=== PATIENT | female | born 1995 | race Hispanic/Latino ===

== ENCOUNTER 2024-09-28 22:47 | Inpatient (IN) | payer MEDICAID, SELFPAY ==
[2024-09-28] MEDS ORDERED: hydrALAZINE 20 MG/ML VIAL SLOW IVP PRN (23:57)
[2024-09-29] MEDS ORDERED: Misoprostol 200 MCG TAB PR PRN (01:31)
[2024-09-29] MEDS ORDERED: hydrALAZINE 20 MG/ML VIAL SLOW IVP PRN ×2 (01:31→03:20)
[2024-09-29] MEDS ORDERED: Acetaminophen 500 MG TAB PO PRN (01:31)
[2024-09-29] MEDS ORDERED: Carboprost 250 MCG/ML AMP IM PRN (01:31)
[2024-09-29] MEDS ORDERED: Tranexamic Acid 1,000 MG/10 ML VIAL IVP PRN (01:31)
[2024-09-29] MEDS ORDERED: Bicitra 30 ML UDCUP PO PRN (01:31)
[2024-09-29] MEDS ORDERED: fentaNYL 50 mcg/mL 1 mL Vial SLOW IVP PRN ×3 (01:31→14:45)
[2024-09-29] MEDS ORDERED: Promethazine HCl 25 MG/ML VIAL IM PRN ×2 (01:31→02:41)
[2024-09-29] MEDS ORDERED: Diphenoxylate HCl/Atropine Tablet PO PRN (01:31)
[2024-09-29] MEDS ORDERED: Ondansetron PF 4 MG/2 ML Vial IVP PRN ×3 (01:31→02:41)
[2024-09-29] MEDS ORDERED: Docusate 100 MG CAP PO PRN (01:31)
[2024-09-29] MEDS ORDERED: Famotidine/PF 20 mg/2ml Vial SLOW IVP PRN (01:31)
[2024-09-29] MEDS ORDERED: Methylergonovine 0.2 MG/ML VIAL IM PRN (01:31)
[2024-09-29] MEDS ORDERED: Oxytocin 30 units/NS 500 ML 500 ML IV SCH (01:45)
[2024-09-29] MEDS ORDERED: CEFAZOLIN 2 GM in Sodium Chloride 0.9% 100 ML IVPB SCH (01:45)
[2024-09-29] MEDS ORDERED: Azithromycin 500 MG in Sodium Chloride 0.9% 250 ML 250 ML IVPB SCH (01:45)
[2024-09-29] MEDS ORDERED: Lactated Ringer's 1,000 ML IV SCH (01:45)
[2024-09-29 01:48] VITALS: BMI 33.4
[2024-09-29 01:49] LABS: Hematocrit 33.9 % (34.9-44.5); Hemoglobin 11.5 g/dL (12.0-15.5); Mean Corpuscular HGB CONC 33.9 g/dL (32.0-36.0); Mean Corpuscular Hemoglobin 28.2 pg (27.0-33.0); Mean Corpuscular Volume 83.1 fL (81.6-98.3); Mean Platelet Volume 12.1 fL (7.4-10.4); Platelet Count 238 10x3/uL (150-450); RBC Distribution Width 16.4 % (11.5-14.5); Red Blood Cell (RBC) Count 4.08 10x6/uL (3.90-5.03); White Blood Cell (WBC) Count 10.5 10x3/uL (3.5-10.5)
[2024-09-29 02:20] LABS: Syphilis Antibody Nonreactive (Nonreactive); Syphilis Antibody Index 0.05 S/CO (<1.00 Non-Reactive)
[2024-09-29 02:22] LABS: HBsAg Index 0.16 S/CO (0-0.99); Hep B Surf Ag - L&D Non-Reactive S/CO (NonReactive)
[2024-09-29] MEDS ORDERED: diphenhydrAMINE 50 MG/ML VIAL IVP PRN (02:41)
[2024-09-29] MEDS ORDERED: Naloxone HCl 0.4 mg/ml Vial IVP PRN ×2 (02:41)
[2024-09-29] MEDS ORDERED: Naloxone HCl 0.4 mg/ml Vial IV PRN (02:41)
[2024-09-29] MEDS ORDERED: Morphine 4 MG/ML VIAL SLOW IVP PRN (02:41)
[2024-09-29] MEDS ORDERED: Moisturizing Cream (Eucerin) 113 GM JAR TOP PRN (02:41)
[2024-09-29] MEDS ORDERED: Meperidine HCl/PF 25 MG (1 mL) VIAL SLOW IVP PRN (02:41)
[2024-09-29] MEDS ORDERED: Communication Order-Pharmacy FS SCH (02:45)
[2024-09-29] MEDS ORDERED: Ketorolac Tromethamine 30 MG (1 mL) VIAL IVP SCH (02:45)
[2024-09-29] MEDS ORDERED: Simethicone Chewable 80 MG TAB PO PRN (03:20)
[2024-09-29] MEDS ORDERED: diphenhydrAMINE 25 MG CAP PO PRN (03:20)
[2024-09-29] MEDS ORDERED: Bisacodyl 10 MG SUPP PR PRN (03:20)
[2024-09-29] MEDS ORDERED: Lanolin Ointment 7 GM TUBE TOP PRN (03:20)
[2024-09-29] MEDS ORDERED: Acetaminophen 325 MG TAB PO PRN (03:20)
[2024-09-29] MEDS ORDERED: Boostrix 0.5 ML (Tdap) VIAL (>/=7 yrs of age) IM ONE (03:20)
[2024-09-29] MEDS: Ketorolac Tromethamine 30 MG (1 mL) VIAL IVP PRN (05:56)
[2024-09-29] MEDS: fentaNYL 50 mcg/mL 1 mL Vial ONE (07:16)
[2024-09-29] MEDS: PHENYLEPHRINE-NS 100 MCG/ML 10 ML SYRINGE ONE (07:16)
[2024-09-29] MEDS: Oxytocin 10 UNITS/ML VIAL ONE (07:16)
[2024-09-29] MEDS: CEFAZOLIN 2 GM VIAL ONE (07:16)
[2024-09-29] MEDS: Promethazine HCl 25 MG/ML VIAL ONE (07:16)
[2024-09-29] MEDS: Lactated Ringer's 1,000 ML IV SCH (07:16)
[2024-09-29] MEDS: Ondansetron PF 4 MG/2 ML Vial ONE (07:16)
[2024-09-29] MEDS: Morphine PF 10 MG/10 ML VIAL ONE (07:16)
[2024-09-29] MEDS: Prenatal Vitamin 1 TAB PO SCH (09:25)
[2024-09-29] MEDS: Ferrous Sulfate 325 MG TAB PO SCH (09:39)
[2024-09-30 04:01] LABS: Hematocrit 32.3 % (34.9-44.5); Hemoglobin 10.6 g/dL (12.0-15.5); Mean Corpuscular HGB CONC 32.8 g/dL (32.0-36.0); Mean Corpuscular Hemoglobin 27.8 pg (27.0-33.0); Mean Corpuscular Volume 84.8 fL (81.6-98.3); Mean Platelet Volume 11.3 fL (7.4-10.4); Platelet Count 206 10x3/uL (150-450); Red Blood Cell (RBC) Count 3.81 10x6/uL (3.90-5.03)
[2024-09-30] MEDS: Ibuprofen 800 MG TAB PO SCH (04:52)
[2024-09-30 08:50] VITALS: TEMP 98.3
[2024-09-30] MEDS: HYDROcodone/Acetaminophen 5/325 mg Tablet PO PRN ×2 (08:57→15:37)
[2024-09-30 11:49] VITALS: BP 101/56
[2024-09-30] MEDS: Measles/Mumps/Rubella 10 MCG/0.5 ML VIAL SC ONE (11:51)
== END 2024-09-30 15:45 | disposition home or self-care (01) | DRG 788 ==
LOC: CSHLD/OP 22:47 → EDBD 09-29 01:23 → CSHLD 09-29 01:23 → CSHPP 09-29 05:30
PROVIDERS: ADMIT Student in an Organized Health Care Education/Training Program; ATTEND Student in an Organized Health Care Education/Training Program
PROC: 10D00Z1 Extraction of Products of Conception, Low, Open Approach (ICD-10-PCS; principal; 2024-09-29)
DX: O34.211 Maternal care for low transverse scar from previous cesarean delivery (principal); Z3A.38 38 weeks gestation of pregnancy; O99.824 Streptococcus B carrier state complicating childbirth; O99.214 Obesity complicating childbirth; O99.02 Anemia complicating childbirth; Z37.0 Single live birth; E66.811 Obesity, class 1; K66.8 Other specified disorders of peritoneum; D64.9 Anemia, unspecified; O35.EXX0 Maternal care for other (suspected) fetal abnormality and damage, fetal genitourinary anomalies, not applicable or unspecified
CPT/HCPCS: 36415; 51702; 85027; 86780; 86850; 86900; 86901; 87340; 90707; 99285; J1885; J2274; J2405; J2550; J2590; J3010